=== PATIENT | female | born 1995 | race African-American/Black ===

== ENCOUNTER 2021-11-26 17:18 | Observation (INO) | payer MEDICAID ==
[~2021-11-26] VITALS: Ht 172.7 cm; Wt 111.1 kg
[2021-11-26] MEDS ORDERED: LACTATED RINGERS 1,000 ML IV SCH (18:00)
[2021-11-26 18:09] LABS: CLARITY URINE CLEAR (CLEAR); COLOR URINE YELLOW (YELLOW); KETONES URINE NEGATIVE (NEGATIVE); LEUKOCYTE ESTERASE URINE NEGATIVE (NEGATIVE); NITRITE URINE NEGATIVE (NEGATIVE); OCCULT BLOOD URINE NEGATIVE (NEGATIVE); PROTEIN URINE NEGATIVE (NEGATIVE); SPECIFIC GRAVITY URINE 1.019 (1.005-1.030)
== END 2021-11-26 20:45 | disposition home or self-care (01) ==
LOC: 8 EST LDRP 17:18
PROVIDERS: ADMIT Specialist; ATTEND Obstetrics & Gynecology
DX: O62.9 Abnormality of forces of labor, unspecified (principal); Z3A.33 33 weeks gestation of pregnancy; Z79.899 Other long term (current) drug therapy
CPT/HCPCS: 59025; 76805; 76818; 81003; 96360; 96361; G0378; 99281; G0379